=== PATIENT | female | born 1985 | race Caucasian/White ===

== ENCOUNTER 2016-09-19 14:04 | Outpatient (CLI) | payer OTHER ==
[~2016-09-19] VITALS: Ht 167.6 cm; Wt 118.0 kg
[~2016-09-19 14:04] MED LIST: AMOX875T PO; FOLI1TAB2 PO; INSUH10VL SC; JARD1TAB PO; KEFL250C6 PO; METF-414 PO; METF-415 PO; PRENTAB55 PO; PRENTAB7 PO; UNIS25TA2 PO; VITA50TA43 PO
[2016-09-19 14:29] VITALS: BP 128/83
[2016-09-19 14:48] VITALS: BP 142/83
[2016-09-19 16:04] VITALS: BP 134/79
[2016-09-19] MEDS ORDERED: METF1000 PO (17:01)
--- NOTE | 2016-09-19 17:14 | IPNPDOC ---
Text Note Date of Service The patient was seen on 09/19/16. NOTE Megan is a 30yo with SIUP at 36w6d presenting with some right low back pain and ctx. Feels good movement. No loss of fluid or vaginal bleeding. 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 status reassuring. Vitals and exam benign. Plan: -Continue routine care with planned GS in [place] on 09/21 -Return precautions discussed at length for labor, SROM, decreased movement -Encouraged hydration -Safe for discharge home Dr. Emma Childers MD [place] [facility],[place], I+O VS, [place], I+O Vital Signs Date Time Temp Pulse Resp B/P (MAP) Pulse Ox O2 Delivery O2 Flow Rate FiO2 09/19/16 16:04 85 16 134/79 (97) 09/19/16 14:29 98.4 EMMA CHILDERS MD September 19, 2016 17:14
== END 2016-09-19 16:37 | disposition home or self-care (01) ==
LOC: M LDO 14:04
PROVIDERS: ATTEND Obstetrics & Gynecology
DX: O47.03 False labor before 37 completed weeks of gestation, third trimester (principal); O24.013 Pre-existing type 1 diabetes mellitus, in pregnancy, third trimester; O99.212 Obesity complicating pregnancy, second trimester; Z96.41 Presence of insulin pump (external) (internal); Z3A.36 36 weeks gestation of pregnancy

== ENCOUNTER 2016-11-18 19:05 | Emergency (ER) | payer OTHER ==
[~2016-11-18] VITALS: Ht 167.6 cm; Wt 112.3 kg
[~2016-11-18 19:05] MED LIST changes: -FOLI1TAB2 PO; +FOLI1TAB4 PO; +KEFL250C11 PO; -KEFL250C6 PO; +METF10004 PO
[2016-11-18] MEDS ORDERED: MEDR1VL IM (19:17)
[2016-11-18] MEDS ORDERED: CIPROFLOXACIN 500 MG TAB PO ONE (20:15)
[2016-11-18] MEDS ORDERED: CIPROFLOXACIN HC OTIC SUSPENSION AS ONE (20:15)
[2016-11-18] MEDS ORDERED: ACETAMINOPH W/CODEINE #3 TAB UD PO ONE (20:15)
[2016-11-18] MEDS ORDERED: CIPRHCOTIC AS (20:19)
[2016-11-18] MEDS ORDERED: CIPR-249 PO (20:19)
[2016-11-18] MEDS ORDERED: NAPR500T PO (20:19)
[2016-11-18] MEDS ORDERED: KETOROLAC 30 MG/ML VIAL (J1885) IV ONE (20:30)
[2016-11-18] MEDS ORDERED: ONDANSETRON 4MG/2ML VIAL (J2405) IV ONE (20:30)
[2016-11-18] MEDS ORDERED: NS 1,000 ML IV ONE (20:30)
[2016-11-18 20:36] VITALS: BP 147/85
== END 2016-11-18 20:37 | disposition home or self-care (01) ==
LOC: M ED 19:05
DX: H60.502 Unspecified acute noninfective otitis externa, left ear (principal); H60.12 Cellulitis of left external ear; E11.9 Type 2 diabetes mellitus without complications; F99 Mental disorder, not otherwise specified; Z79.84 Long term (current) use of oral hypoglycemic drugs; Z79.899 Other long term (current) drug therapy

== ENCOUNTER → 2017-07-27 | Outpatient (CLI) | payer OTHER ==
[2017-07-27 17:52] LABS: ANION GAP 7 MEQ/L (8-16); BLOOD UREA NITROGEN 19 MG/DL (7-18); CALCIUM LEVEL 8.6 MG/DL (8.5-10.1); CARBON DIOXIDE LEVEL 24 MEQ/L (21-32); CHLORIDE LEVEL 112 MEQ/L (98-107); CHOLESTEROL LEVEL 163 MG/DL (<200); CHOLESTEROL RISK RATIO 3.196 (<5); CREATININE FOR GFR 0.75 MG/DL (0.55-1.30); GLOMERULAR FILTRATION RATE > 60.0 (>60); GLUCOSE, FASTING 131 MG/DL (70-100); HDL CHOLESTEROL 51 MG/DL (>40); LDL CHOLESTEROL 94.6 MG/DL (<100); NON-HDL-C 112 MG/DL; POTASSIUM SERUM 4.4 MEQ/L (3.5-5.1); SODIUM LEVEL 143 MEQ/L (136-145); TRIGLYCERIDES LEVEL 87 MG/DL (<150)
[2017-07-27 18:18] LABS: MALB URINE SIEMENS 14.8 MG/L; MAU/CREAT RATIO 12.7 MCG/MG (0.0-30.0)
== END ==
LOC: M ADAMS 10:04
DX: E10.65 Type 1 diabetes mellitus with hyperglycemia (principal)
CPT/HCPCS: 80061

== ENCOUNTER → 2019-05-13 | Outpatient (REF) | payer OTHER ==
[~2019-05-13] MED LIST changes: +CIPR-249 PO; +CIPRHCOTIC AS; +FOLI1TAB11 PO; -FOLI1TAB4 PO; +MEDR1VL IM; +NAPR-837 PO; -UNIS25TA2 PO; +UNIS25TA3 PO
== END ==
LOC: M LAB REF 16:51
PROVIDERS: ATTEND Physician Assistant
DX: J02.9 Acute pharyngitis, unspecified (principal)

== ENCOUNTER → 2021-02-10 | Outpatient (REF) | payer OTHER ==
[2021-02-10 18:13] LABS: CREATININE, URINE 45.6 MG/DL; MALB URINE SIEMENS 8.9 MG/L; MAU/CREAT RATIO 19.5 MCG/MG (0.0-30.0)
== END ==
LOC: M LAB REF 17:06
PROVIDERS: ATTEND Nurse Practitioner Family
DX: E10.65 Type 1 diabetes mellitus with hyperglycemia (principal)

== ENCOUNTER 2022-10-03 09:11 | Outpatient (CLI) | payer OTHER ==
[~2022-10-03] VITALS: Ht 167.6 cm; Wt 109.0 kg
[2022-10-03] MEDS ORDERED: IRON SUCROSE 200 MG in NS 100 ML OVER 1 HR IV ONE (09:30)
[2022-10-03 09:37] VITALS: BP 129/79; O2SAT 98
[2022-10-03] MEDS ORDERED: WELLTAB38 PO (09:41)
[2022-10-03] MEDS ORDERED: BUSP10TA PO (09:41)
[2022-10-03] MEDS ORDERED: LEXA1TAB2 PO (09:41)
[2022-10-03 10:40] VITALS: BP 131/76; O2SAT 97
== END 2022-10-03 10:40 | disposition home or self-care (01) ==
LOC: M INFU 09:11
PROVIDERS: ATTEND Nurse Practitioner Adult Health
DX: D50.9 Iron deficiency anemia, unspecified (principal)
CPT/HCPCS: 96365; J1756

== ENCOUNTER → 2022-10-30 | Outpatient (CLI) | payer OTHER ==
[~2022-10-30] MED LIST changes: +BUSP10TA PO; +LEXA1TAB2 PO; +WELLTAB38 PO
== END ==
LOC: M SLEEP HO 11:26
PROVIDERS: ATTEND Nurse Practitioner Adult Health
DX: G47.33 Obstructive sleep apnea (adult) (pediatric) (principal); R53.83 Other fatigue

== ENCOUNTER 2023-09-23 15:45 | Outpatient (CLI) | payer OTHER ==
[~2023-09-23] VITALS: Ht 167.6 cm; Wt 100.0 kg
[2023-09-23 15:55] VITALS: BP 98/70; O2SAT 100
[2023-09-23] MEDS: IRON SUCROSE 200 MG in NS 100 ML OVER 1 HR IV ONE (16:09)
[2023-09-23 17:12] VITALS: BP 116/83; O2SAT 100
== END 2023-09-23 17:15 ==
LOC: M INFU 15:45
PROVIDERS: ATTEND Nurse Practitioner Adult Health
DX: D50.9 Iron deficiency anemia, unspecified (principal)
CPT/HCPCS: 96365; J1756

== ENCOUNTER → 2023-11-05 | Outpatient (CLI) | payer BC, OTHER | LOC: M SLEEP HO 11:35 | PROVIDERS: ATTEND Physician Assistant | DX: G47.33 Obstructive sleep apnea (adult) (pediatric) (principal) ==

== ENCOUNTER 2025-03-17 09:47 | Outpatient (CLI) | payer BC, OTHER ==
[~2025-03-17] VITALS: Ht 167.6 cm; Wt 79.5 kg
[~2025-03-17 09:47] MED LIST changes: +ALBUTEROL SULFATE 2.5 MG/0.5 ML INH CONCENTRATE NEB SOLN INH PRN; +EPINEPHrine INJ 1 MG/ML 1ML AMP IM PRN; +diphenhydrAMINE 50 MG/ML VIAL IV PRN
[2025-03-17 10:00] VITALS: BP 98/61; O2SAT 100
[2025-03-17] MEDS: IRON SUCROSE 500 MG in NS 250 ML IV ONE (10:43)
[2025-03-17 11:45] VITALS: BP 100/69; O2SAT 100
[2025-03-17 12:45] VITALS: BP 105/63; O2SAT 98
[2025-03-17 13:45] VITALS: BP 111/69; O2SAT 98
[2025-03-17 15:00] VITALS: BP 123/64; O2SAT 99
== END 2025-03-17 15:10 | disposition home or self-care (01) ==
LOC: M INFU 09:47
PROVIDERS: ATTEND Nurse Practitioner Adult Health
DX: D50.9 Iron deficiency anemia, unspecified (principal)
CPT/HCPCS: 96365; 96366; J1756

== ENCOUNTER 2025-03-30 07:42 | Outpatient (CLI) | payer BC, OTHER ==
[~2025-03-30] VITALS: Ht 167.6 cm; Wt 79.5 kg
[2025-03-30 07:45] VITALS: BP 133/83; O2SAT 99
[2025-03-30] MEDS: IRON SUCROSE 500 MG in NS 250 ML IV ONE (08:42)
[2025-03-30 09:51] VITALS: BP 111/75; O2SAT 99
[2025-03-30 11:00] VITALS: BP 106/70; O2SAT 100
[2025-03-30 12:00] VITALS: BP 110/68; O2SAT 100
[2025-03-30 12:43] VITALS: BP 115/81; O2SAT 97
== END 2025-03-30 12:45 | disposition home or self-care (01) ==
LOC: M INFU 07:42
PROVIDERS: ATTEND Nurse Practitioner Adult Health
DX: D50.9 Iron deficiency anemia, unspecified (principal)
CPT/HCPCS: 96365; 96366; J1756